=== PATIENT | female | born 1980 | race Caucasian/White ===

== ENCOUNTER 2020-01-18 08:51 | Emergency (ER) | payer BC, OTHER ==
[2020-01-18] MEDS ORDERED: diphenhydrAMINE 50 MG Cap PO ONE (08:57)
[2020-01-18] MEDS ORDERED: Dexamethasone 10 MG/ML SDV IM ONE (09:05)
--- NOTE | 2020-01-18 09:15 | EDM.PDOC ---
ED [facility] GENERAL MEDICAL PROBLEM - General Chief Complaint: Allergic Reaction Time Seen by Provider: 01/18/20 09:00 Source of Information: Reports: Patient History Limitations: Reports: No Limitations - Related Data Allergies Allergy/AdvReac Type Severity Reaction Status Date / Time No Known Allergies Allergy Verified 01/18/20 08:57 Home Meds: Home Meds methylPREDNISolone [Medrol Dose Pack] 4 mg PO DAILY 6 Days #21 dospk 01/18/20 [Rx] Past Medical History - Infectious Disease History Infectious Disease History: Reports: None - Past Surgical History GI Surgical History: Reports: Appendectomy Social & Family History - Family History Family Medical History: Noncontributory - Tobacco Use Smoking Status *Q: Never Smoker - Caffeine Use Caffeine Use: Reports: None - Recreational Drug Use Recreational Drug Use: No ED ROS ALLERGIC REACTION - Review of Systems Review Of Systems: Comprehensive ROS is negative, except as noted in HPI. HEENT: Reports: Other (scratchy throat) Skin: Reports: Other (Generalized itching) ED EXAM GENERAL NO PERIP PULSE - Physical Exam Exam: See Below Text/Narrative:: History of present illness: [] Review of systems: As per history of present illness and below otherwise all systems reviewed and negative. Past medical history: As per history of present illness and as reviewed below otherwise noncontributory. Surgical history: As per history of present illness and as reviewed below otherwise noncontributory. Social history: No reported history of drug or alcohol abuse. Family history: As per history of present illness and as reviewed below otherwise noncontributory. Physical exam: HEENT: Atraumatic, normocephalic, pupils reactive, negative for conjunctival pallor or scleral icterus, mucous membranes moist, throat clear, neck supple, nontender, trachea midline. Lungs: Clear to auscultation, breath sounds equal bilaterally, chest nontender. Heart: S1S2, regular, negative for clicks, rubs, or JVD. Abdomen: Soft, nondistended, nontender. Negative for masses or hepatosplenomegaly. Negative for costovertebral tenderness. Pelvis: Stable nontender. Genitourinary: Deferred. Rectal: Deferred. Extremities: Atraumatic, negative for cords or calf pain. Neurovascular unremarkable. Neuro: Awake, alert, oriented. Cranial nerves II through XII unremarkable. Cerebellum unremarkable. Motor and sensory unremarkable throughout. Exam nonfocal. Diagnostics: [] Therapeutics: [] Impression: [] Allergic reaction Plan: Observe briefly and then Medrol Dosepak and Benadryl as an outpatient [] Definitive disposition and diagnosis as appropriate pending reevaluation and review of above. Course - Vital Signs Last Recorded V/S: Last Vital Signs Temp 96.4 F L 01/18/20 08:58 Pulse 67 01/18/20 08:58 Resp 18 01/18/20 08:58 BP 121/75 01/18/20 08:58 Pulse Ox 97 01/18/20 08:58 - Orders/Labs/Meds Orders: Active Orders 24 hr Category Date Time Status dexAMETHasone [Dexamethasone] Med 01/18/20 09:05 Once 4 mg IM ONETIME ONE Meds: Medications Discontinued Medications Generic Name Dose Route Start Last Admin Trade Name Freq PRN Reason Stop Dose Admin Diphenhydramine HCl 50 mg 01/18/20 08:57 01/18/20 09:05 Benadryl PO 01/18/20 08:58 50 mg ONETIME ONE Administration Departure - Departure Time of Disposition: 09:16 Disposition: Home, Self-Care 01 Condition: Good Clinical Impression: Allergen injection reaction - Discharge Information Referrals: PCP,None [Primary Care Provider] - ([facility] - Internal Medicine [address] [place] [address] ) Forms: ED Department Discharge Additional Instructions: The following information is given to patients seen in the emergency department who are being discharged to home. This information is to outline your options for follow-up care. We provide all patients seen in our emergency department with a follow-up referral. The need for follow-up, as well as the timing and circumstances, are variable depending upon the specifics of your emergency department visit. If you don't have a primary care physician on staff, we will provide you with a referral. We always advise you to contact your personal physician following an emergency department visit to inform them of the circumstance of the visit and for follow-up with them and/or the need for any referrals to a consulting specialist. The emergency department will also refer you to a specialist when appropriate. This referral assures that you have the opportunity for follow-up care with a specialist. All of these measure are taken in an effort to provide you with optimal care, which includes your follow-up. Under all circumstances we always encourage you to contact your private physician who remains a resource for coordinating your care. When calling for follow-up care, please make the office aware that this follow-up is from your recent emergency room visit. If for any reason you are refused follow-up, please contact the [facility] Emergency Department at and asked to speak to the emergency department charge nurse. He should take Benadryl as well for 3 days probably at least 25 mg 3 times a day. If you feel weak lightheaded dizzy or have trouble breathing you need to return immediately by 911. Sepsis Event Note (ED) - Evaluation Sepsis Screening Result: No Definite Risk - Focused Exam Vital Signs: Vital Signs Temp Pulse Resp BP Pulse Ox 01/18/20 08:58 96.4 F L 67 18 121/75 97 - My Orders Last 24 Hours: My Active Orders 01/18/20 09:05 dexAMETHasone [Dexamethasone] 4 mg IM ONETIME ONE - Assessment/Plan Last 24 Hours: My Active Orders 01/18/20 09:05 dexAMETHasone [Dexamethasone] 4 mg IM ONETIME ONE
== END 2020-01-18 09:47 | disposition home or self-care (01) ==
LOC: MW.ED 08:51
DX: T78.40XA Allergy, unspecified, initial encounter (principal)
CPT/HCPCS: 96372; 99283; A9270; J1100; 99282

== ENCOUNTER 2020-01-20 19:15 | Emergency (ER) | payer BC ==
--- NOTE | 2020-01-20 19:53 | EDM.PDOC ---
ED [facility] GENERAL MEDICAL PROBLEM - General Chief Complaint: Abdominal Pain Stated Complaint: ABDOMINAL PAIN Time Seen by Provider: 01/20/20 19:27 Source of Information: Reports: Patient History Limitations: Reports: No Limitations - History of Present Illness INITIAL COMMENTS - FREE TEXT/NARRATIVE: 39-year-old female presents with lower abdominal pain. She is status post saline infusion sonohysterography on 01/17/[address] Dale given her history of irregular cycles. They found endometrial polyp with flow measuring 6 x 8 x 5 mm in size. She is scheduled for a biopsy on February 09. She has had cramping since the procedure but today the discomfort worsen, with intermittent sharp pain lasting minutes, rating at 9/10. She denies fever, chills, dysuria, nausea, vomiting, vaginal discharge. She had trace spotting today. ROS: A 10-point review of systems, other than pertinent positives and negatives as stated per HPI, is otherwise negative PHYSICAL EXAM General: AOx4, GCS = 15, moderate distress HEENT: dry mucous membrane Neck: supple, no meningismus, no Kernig or Brudzinski Cardiac: S1S2 RRR Respiratory: CTAB, no crackles or rales, no wheezing Abdomen: Soft, ttp lower abdomen diffusely, RLQ>suprapubic>LLQ ttp, mild RUQ ttp, no rebound or guarding, nondistended, no pulsatile mass. Back: nontender Musculoskeletal: NVI distally, no deformity Neuro: No focal deficits. MEDICAL DECISION MAKING: I reviewed the patients past medical records, lab and radiographic findings. I discussed the case with family members. My differential diagnosis included: Postop complication, appendicitis, dysmenorrhea Patient is allergic to contrast, head CT was performed without contrast, CT abdomen pelvis did not reveal any underlying surgical abnormality. She was much improved after Bentyl and Toradol, her pain improved from 9 to 2. Repeat abdominal exam was unremarkable, she felt comfortable being discharged and follow-up with OB on Thursday. 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 Musculoskeletal History: Reports: None Neurological History: Reports: None Psychiatric History: Reports: None Endocrine/Metabolic History: Reports: None Hematologic History: Reports: None Immunologic History: Reports: None Oncologic (Cancer) History: Reports: None Dermatologic History: Reports: None - Infectious Disease History Infectious Disease History: Reports: None - Past Surgical History Head Surgeries/Procedures: Reports: None GI Surgical History: Reports: Appendectomy Social & Family History - Family History Family Medical History: Noncontributory - Tobacco Use Smoking Status *Q: Never Smoker - Caffeine Use Caffeine Use: Reports: None - Recreational Drug Use Recreational Drug Use: No ED ROS GENERAL - Review of Systems Review Of Systems: Comprehensive ROS is negative, except as noted in HPI. ED EXAM, GI/ABD - Physical Exam Exam: See Below (see dictation) Course - Vital Signs Last Recorded V/S: Last Vital Signs Temp 97.2 F 01/20/20 19:45 Pulse 80 01/20/20 19:45 Resp 18 01/20/20 19:45 BP 121/76 01/20/20 19:45 Pulse Ox 98 01/20/20 19:45 - Orders/Labs/Meds Orders: Active Orders 24 hr Category Date Time Status Sodium Chloride 0.9% [Saline Flush] Med 01/20/20 20:04 Active 10 ml FLUSH ASDIRECTED PRN Saline Lock Insert [OM.PC] Stat Oth 01/20/20 20:04 Ordered Medication Orders Sodium Chloride (Saline Flush) 10 ml FLUSH ASDIRECTED PRN PRN Reason: Keep Vein Open Last Admin: 01/20/20 21:04 Dose: 10 ml Documented by: PABLO Labs: Laboratory Tests 01/20/20 01/20/20 01/20/20 Range/Units 20:57 20:57 20:57 WBC 9.91 (4.0-11.0) K/uL RBC 4.46 (4.30-5.90) M/uL Hgb 11.9 L (12.0-16.0) g/dL Hct 37.6 (36.0-46.0) % MCV 84.3 (80.0-98.0) fL MCH 26.7 L (27.0-32.0) pg MCHC 31.6 (31.0-37.0) g/dL RDW Std Deviation 47.1 (28.0-62.0) fl RDW Coeff of Karly 15 (11.0-15.0) % Plt Count 210 (150-400) K/uL MPV 11.90 (7.40-12.00) fL Neut % (Auto) 71.1 (48.0-80.0) % Lymph % (Auto) 21.1 (16.0-40.0) % Weakley % (Auto) 5.5 (0.0-15.0) % Eos % (Auto) 1.9 (0.0-7.0) % Baso % (Auto) 0.4 (0.0-1.5) % Neut # (Auto) 7.0 H (1.4-5.7) K/uL Lymph # (Auto) 2.1 (0.6-2.4) K/uL Weakley # (Auto) 0.6 (0.0-0.8) K/uL Eos # (Auto) 0.2 (0.0-0.7) K/uL Baso # (Auto) 0.0 (0.0-0.1) K/uL Nucleated RBC % 0.0 /100WBC Nucleated RBCs # 0 K/uL INR 1.02 APTT 23.1 (18.6-31.3) SEC Lactate 0.8 (0.20-2.00) mmol/L Sodium (136-145) mmol/L Potassium (3.5-5.1) mmol/L Chloride (98-107) mmol/L Carbon Dioxide (21.0-32.0) mmol/L BUN (7.0-18.0) mg/dL Creatinine (0.6-1.0) mg/dL Est Cr Clr Drug Dosing mL/min Estimated GFR (MDRD) ml/min Glucose (74-106) mg/dL Calcium (8.5-10.1) mg/dL Phosphorus (2.6-4.7) mg/dL Magnesium (1.8-2.4) mg/dL Total Bilirubin (0.2-1.0) mg/dL AST (15-37) IU/L ALT (14-63) IU/L Alkaline Phosphatase (46-116) U/L Total Protein (6.4-8.2) g/dL Albumin (3.4-5.0) g/dL Globulin (2.6-4.0) g/dL Albumin/Globulin Ratio (0.9-1.6) Lipase (73-393) U/L Urine Color Urine Appearance Urine pH (5.0-8.0) Ur Specific Flint (1.001-1.035) Urine Protein (NEGATIVE) mg/dL Urine Glucose (UA) (NEGATIVE) mg/dL Urine Ketones (NEGATIVE) mg/dL Urine Occult Blood (NEGATIVE) Urine Nitrite (NEGATIVE) Urine Bilirubin (NEGATIVE) Urine Urobilinogen (<2.0) EU/dL Ur Leukocyte Esterase (NEGATIVE) Urine RBC (0-2/HPF) Urine WBC (0-5/HPF) Ur Epithelial Cells (NONE-FEW) Urine Bacteria (NEGATIVE) 01/20/20 01/20/20 Range/Units 20:57 21:50 WBC (4.0-11.0) K/uL RBC (4.30-5.90) M/uL Hgb (12.0-16.0) g/dL Hct (36.0-46.0) % MCV (80.0-98.0) fL MCH (27.0-32.0) pg MCHC (31.0-37.0) g/dL RDW Std Deviation (28.0-62.0) fl RDW Coeff of Karly (11.0-15.0) % Plt Count (150-400) K/uL MPV (7.40-12.00) fL Neut % (Auto) (48.0-80.0) % Lymph % (Auto) (16.0-40.0) % Weakley % (Auto) (0.0-15.0) % Eos % (Auto) (0.0-7.0) % Baso % (Auto) (0.0-1.5) % Neut # (Auto) (1.4-5.7) K/uL Lymph # (Auto) (0.6-2.4) K/uL Weakley # (Auto) (0.0-0.8) K/uL Eos # (Auto) (0.0-0.7) K/uL Baso # (Auto) (0.0-0.1) K/uL Nucleated RBC % /100WBC Nucleated RBCs # K/uL INR APTT (18.6-31.3) SEC Lactate (0.20-2.00) mmol/L Sodium 139 (136-145) mmol/L Potassium 3.4 L (3.5-5.1) mmol/L Chloride 103 (98-107) mmol/L Carbon Dioxide 26.2 (21.0-32.0) mmol/L BUN 18 (7.0-18.0) mg/dL Creatinine 0.9 (0.6-1.0) mg/dL Est Cr Clr Drug Dosing 101.92 mL/min Estimated GFR (MDRD) > 60.0 ml/min Glucose 90 (74-106) mg/dL Calcium 8.6 (8.5-10.1) mg/dL Phosphorus 4.4 (2.6-4.7) mg/dL Magnesium 1.9 (1.8-2.4) mg/dL Total Bilirubin 0.2 (0.2-1.0) mg/dL AST 12 L (15-37) IU/L ALT 21 (14-63) IU/L Alkaline Phosphatase 71 (46-116) U/L Total Protein 7.3 (6.4-8.2) g/dL Albumin 4.2 (3.4-5.0) g/dL Globulin 3.1 (2.6-4.0) g/dL Albumin/Globulin Ratio 1.4 (0.9-1.6) Lipase 85 (73-393) U/L Urine Color YELLOW Urine Appearance CLEAR Urine pH 5.0 (5.0-8.0) Ur Specific Flint 1.020 (1.001-1.035) Urine Protein NEGATIVE (NEGATIVE) mg/dL Urine Glucose (UA) NEGATIVE (NEGATIVE) mg/dL Urine Ketones NEGATIVE (NEGATIVE) mg/dL Urine Occult Blood SMALL H (NEGATIVE) Urine Nitrite NEGATIVE (NEGATIVE) Urine Bilirubin NEGATIVE (NEGATIVE) Urine Urobilinogen 0.2 (<2.0) EU/dL Ur Leukocyte Esterase NEGATIVE (NEGATIVE) Urine RBC 0-2 (0-2/HPF) Urine WBC 0-1 (0-5/HPF) Ur Epithelial Cells RARE (NONE-FEW) Urine Bacteria FEW (NEGATIVE) Meds: Medications Generic Name Dose Route Start Last Admin Trade Name Frebrandy PRN Reason Stop Dose Admin Sodium Chloride 10 ml 01/20/20 20:04 01/20/20 21:04 Saline Flush FLUSH 10 ml ASDIRECTED PRN Administration Keep Vein Open Discontinued Medications Generic Name Dose Route Start Last Admin Trade Name Freq PRN Reason Stop Dose Admin Dicyclomine HCl 20 mg 01/20/20 20:04 01/20/20 21:04 Bentyl PO 01/20/20 20:05 20 mg ONETIME ONE Administration Lactated Ringer's 1,000 mls @ 999 mls/hr 01/20/20 20:04 01/20/20 20:57 Ringers, Lactated IV 01/20/20 21:04 999 mls/hr .BOLUS ONE Administration Ketorolac Tromethamine 15 mg 01/20/20 20:04 01/20/20 21:01 Toradol IVPUSH 01/20/20 20:05 15 mg ONETIME ONE Administration Ketorolac Tromethamine 15 mg 01/20/20 23:15 01/20/20 23:53 Toradol IVPUSH 01/20/20 23:16 15 mg ONETIME ONE Administration Ketorolac Tromethamine Confirm 01/20/20 23:48 01/20/20 23:54 Toradol Administered 01/20/20 23:49 Not Given Dose 15 mg .ROUTE .STK-MED ONE Morphine Sulfate 4 mg 01/20/20 20:04 01/20/20 23:52 Morphine IVPUSH 01/20/20 20:05 Not Given ONETIME ONE Ondansetron HCl 4 mg 01/20/20 20:04 01/20/20 21:00 Zofran IVPUSH 01/20/20 20:05 4 mg ONETIME ONE Administration - Re-Assessments/Exams Free Text/Narrative Re-Assessment/Exam: 01/20/20 20:10 Ordered IV fluids, Bentyl 20mg, Toradol, morphine 4 mg IV. Departure - Departure Time of Disposition: 23:59 Disposition: Home, Self-Care 01 Condition: Good Clinical Impression: Abdominal pain - Discharge Information *PRESCRIPTION DRUG MONITORING PROGRAM REVIEWED*: Not Applicable *COPY OF PRESCRIPTION DRUG MONITORING REPORT IN PATIENT PRACHI: Not Applicable Prescriptions: Dicyclomine [Bentyl] 20 mg PO BID #20 tablet Naproxen [Naprosyn] 500 mg PO Q12HR #10 tab Instructions: Abdominal Pain, Adult, [id number] Referrals: Chito Cevallos MD [Physician] - 2 Days Forms: ED Department Discharge Additional Instructions: The following information is given to patients seen in the emergency department who are being discharged to home. This information is to outline your options for follow-up care. We provide all patients seen in our emergency department with a follow-up referral. The need for follow-up, as well as the timing and circumstances, are variable depending upon the specifics of your emergency department visit. If you don't have a primary care physician on staff, we will provide you with a referral. We always advise you to contact your personal physician following an emergency department visit to inform them of the circumstance of the visit and for follow-up with them and/or the need for any referrals to a consulting specialist. The emergency department will also refer you to a specialist when appropriate. This referral assures that you have the opportunity for follow-up care with a specialist. All of these measure are taken in an effort to provide you with optimal care, which includes your follow-up. Under all circumstances we always encourage you to contact your private physician who remains a resource for coordinating your care. When calling for follow-up care, please make the office aware that this follow-up is from your recent emergency room visit. If for any reason you are refused follow-up, please contact the [facility] Emergency Department at and asked to speak to the emergency department charge nurse. Sepsis Event Note (ED) - Evaluation Sepsis Screening Result: No Definite Risk - Focused Exam Vital Signs: Vital Signs Temp Pulse Resp BP Pulse Ox 01/20/20 19:45 97.2 F 80 18 121/76 98 - My Orders Last 24 Hours: My Active Orders 01/20/20 20:04 Sodium Chloride 0.9% [Saline Flush] 10 ml FLUSH ASDIRECTED PRN Saline Lock Insert [OM.PC] Stat - Assessment/Plan Last 24 Hours: My Active Orders 01/20/20 20:04 Sodium Chloride 0.9% [Saline Flush] 10 ml FLUSH ASDIRECTED PRN Saline Lock Insert [OM.PC] Stat
[2020-01-20] MEDS ORDERED: Lactated Ringers 1,000 ML IV ONE (20:04)
[2020-01-20] MEDS ORDERED: Dicyclomine 10 MG Cap PO ONE (20:04)
[2020-01-20] MEDS ORDERED: Morphine 10 MG/ML Syringe IVPUSH ONE (20:04)
[2020-01-20] MEDS ORDERED: Ketorolac 15 MG/ML SDV IVPUSH ONE (20:04)
[2020-01-20] MEDS ORDERED: Ondansetron 4 MG/2 ML SDV IVPUSH ONE (20:04)
[2020-01-20] MEDS ORDERED: Sodium Chloride 0.9% 10 ML Syringe FLUSH PRN (20:04)
--- NOTE | 2020-01-20 21:13 | CT ---
CT abdomen and pelvis Technique: Multiple axial sections were obtained from above the dome of the diaphragm inferiorly through the pubic symphysis. Intravenous and oral contrast not utilized. Comparison: No prior abdominal imaging is available. Findings: Visualized lung bases shows a small air-filled cyst within the right base which appears to be chronic. Small subpleural nodule is noted within the lateral left costophrenic angle measuring about 3 mm which is felt to be incidental. Liver shows a minimal low density lesion within the inferior right lobe measuring about 6 mm in size. This is too small to accurately get a Hounsfield unit measurement but most likely represents a small cyst as no other liver lesions are seen. Spleen appears within normal limits. Adrenal glands show no nodule. Kidneys show no abnormal calcifications. No ureteral dilatation or ureteral stone is seen. Pancreas shows no discrete abnormality. Aorta shows no aneurysm. No retroperitoneal adenopathy or mesenteric abnormalities are seen. Appendix is not seen with certainty. No pelvic mass or adenopathy is noted. No free fluid or inflammatory change is seen. Slight increased stool is noted within the right and transverse colon. Bone window settings were reviewed which shows no acute osseous finding. Impression: 1. Slight increased stool within the right and transverse colon. 2. Nothing acute is otherwise appreciated on noncontrast CT study of the abdomen and pelvis. Diagnostic code #2 Study was dictated in MDT
[2020-01-20 21:41] LABS: BLOOD UREA NITROGEN,BUN 18 mg/dL (7.0-18.0); CARBON DIOXIDE,CO2 26.2 mmol/L (21.0-32.0); CHLORIDE,CL 103 mmol/L (98-107); GLUCOSE RANDOM 90 mg/dL (74-106); LIPASE 85 U/L (73-393); POTASSIUM,K 3.4 mmol/L (3.5-5.1); SODIUM,NA 139 mmol/L (136-145)
[2020-01-20] MEDS ORDERED: Ketorolac 30 MG/ML SDV IVPUSH ONE (23:15)
[2020-01-20] MEDS ORDERED: Ketorolac 15 MG/ML SDV ONE (23:48)
== END 2020-01-21 00:23 | disposition home or self-care (01) ==
LOC: MW.ED 19:15
DX: R10.31 Right lower quadrant pain (principal); R10.32 Left lower quadrant pain; R10.11 Right upper quadrant pain; Z88.6 Allergy status to analgesic agent; Z90.49 Acquired absence of other specified parts of digestive tract; Z79.899 Other long term (current) drug therapy
CPT/HCPCS: 36415; 74176; 80053; 81001; 83605; 83690; 83735; 84100; 85025; 85610; 85730; 96374; 96375; 96376; 99284; A9270; J1885; J2405; J7120; 99283

== ENCOUNTER 2020-02-10 11:25 | Day surgery (SDC) | payer BC, OTHER ==
[~2020-02-10 11:25] MED LIST: Lactated Ringers 1,000 ML IV SCH
--- NOTE | 2020-02-10 12:27 | PCM.PREANE ---
Preanesthetic Assessment - Anesthesia/Transfusion/Family Hx Anesthesia History: Prior Anesthesia Without Reaction Family History of Anesthesia Reaction: No Transfusion History: No Prior Transfusion(s) - Review of Systems General: No Symptoms Pulmonary: No Symptoms Cardiovascular: No Symptoms Gastrointestinal: No Symptoms Neurological: No Symptoms Other: Reports: None - Physical Assessment NPO Status Date: 02/09/20 Height: 6 ft 1 in Weight: 92.533 kg ASA Class: 1 Mental Status: Alert & Oriented x3 Airway Class: Mallampati = 2 ROM/Head Extension: Full Lungs: Clear to Auscultation, Normal Respiratory Effort Cardiovascular: Regular Rate, Regular Rhythm - Lab Values: Laboratory Last Values WBC 5.12 K/uL (4.0-11.0) 02/09/20 08:43 RBC 4.60 M/uL (4.30-5.90) 02/09/20 08:43 Hgb 12.2 g/dL (12.0-16.0) 02/09/20 08:43 Hct 39.3 % (36.0-46.0) 02/09/20 08:43 MCV 85.4 fL (80.0-98.0) 02/09/20 08:43 MCH 26.5 pg (27.0-32.0) L 02/09/20 08:43 MCHC 31.0 g/dL (31.0-37.0) 02/09/20 08:43 RDW Std Deviation 47.9 fl (28.0-62.0) 02/09/20 08:43 RDW Coeff of Karly 15 % (11.0-15.0) 02/09/20 08:43 Plt Count 188 K/uL (150-400) 02/09/20 08:43 MPV 11.50 fL (7.40-12.00) 02/09/20 08:43 Nucleated RBC % 0.0 /100WBC 02/09/20 08:43 Nucleated RBCs # 0 K/uL 02/09/20 08:43 Urine HCG, Qual NEGATIVE (NEGATIVE) 02/09/20 08:35 - Allergies Allergies/Adverse Reactions: Allergies Allergy/AdvReac Type Severity Reaction Status Date / Time iodine Allergy Hives Verified 02/07/20 09:17 - Blood Blood Available: No - Anesthesia Plan Pre-Op Medication Ordered: None - Acknowledgements Anesthesia Type Planned: General Anesthesia Pt an Appropriate Candidate for the Planned Anesthesia: Yes Alternatives and Risks of Anesthesia Discussed w Pt/Guardian: Yes Pt/Guardian Understands and Agrees with Anesthesia Plan: Yes Additional Comments: PMH: none PLAN: ga/lma PreAnesthesia Questionnaire HEENT History: Reports: None Cardiovascular History: Reports: None Respiratory History: Reports: None Gastrointestinal History: Reports: None Genitourinary History: Reports: None 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 Musculoskeletal History: Reports: None Neurological History: Reports: None Other Neuro History: seizure activity 15 years ago, "possibly caused by depression" none since Psychiatric History: Reports: None Endocrine/Metabolic History: Reports: None Hematologic History: Reports: None Immunologic History: Reports: None Oncologic (Cancer) History: Reports: None Dermatologic History: Reports: None - Infectious Disease History Infectious Disease History: Reports: None - Past Surgical History Head Surgeries/Procedures: Reports: None HEENT Surgical History: Reports: None Cardiovascular Surgical History: Reports: None Respiratory Surgical History: Reports: None GI Surgical History: Reports: Appendectomy Female Surgical History: Reports: Tubal Ligation Endocrine Surgical History: Reports: None Neurological Surgical History: Reports: None Musculoskeletal Surgical History: Reports: Arthroscopic Knee Oncologic Surgical History: Reports: None Dermatological Surgical History: Reports: None - SUBSTANCE USE Smoking Status *Q: Light Tobacco Smoker Tobacco Use Within Last Twelve Months: Cigarettes - HOME MEDS Home Medications: Home Meds . [No Known Home Meds] 02/07/20 [History] - CURRENT (IN HOUSE) MEDS Current Meds: Current Medications Lactated Ringer's (Ringers, Lactated) 1,000 mls @ 125 mls/hr IV ASDIRECTED [facility]
[2020-02-10] MEDS ORDERED: Lidocaine 2% 5 ML SDV ONE ×2 (12:47→14:03)
[2020-02-10] MEDS ORDERED: Ondansetron 4 MG/2 ML SDV ONE ×2 (12:47→14:03)
[2020-02-10] MEDS ORDERED: Propofol 200 MG/20 ML SDV ONE ×2 (12:47→13:34)
[2020-02-10] MEDS ORDERED: Midazolam 1 MG/ML 2 ML SDV ONE ×2 (12:47→13:34)
[2020-02-10] MEDS ORDERED: fentaNYL 250 MCG/5 ML SDV ONE (12:47)
[2020-02-10] MEDS ORDERED: Sodium Chloride 0.9% 2.5 ML Syringe FLUSH PRN (13:25)
[2020-02-10] MEDS ORDERED: Sodium Chloride 0.9% 10 ML SDV IV PRN (13:25)
[2020-02-10] MEDS ORDERED: Sodium Chloride 0.9% 10 ML Syringe FLUSH PRN (13:25)
[2020-02-10] MEDS ORDERED: fentaNYL 100 MCG/2 ML SDV ONE (13:34)
[2020-02-10] MEDS ORDERED: Ketorolac 30 MG/ML SDV ONE ×2 (13:36→14:03)
[2020-02-10] MEDS ORDERED: Glycopyrrolate 0.2 MG/ML SDV ONE ×2 (13:36→14:03)
[2020-02-10] MEDS ORDERED: fentaNYL 100 MCG/2 ML SDV IVPUSH PRN (14:12)
[2020-02-10] MEDS ORDERED: Acetaminophen 1,000 MG in Premix Bag 1 BAG IV PRN (14:12)
[2020-02-10] MEDS ORDERED: Morphine 4 MG/ML Syringe IVPUSH PRN (14:31)
[2020-02-10] MEDS ORDERED: Ketorolac 30 MG/ML SDV IVPUSH ONE (14:31)
[2020-02-10] MEDS ORDERED: Acetaminophen/oxyCODONE 325-5 MG Tab PO PRN ×2 (14:31)
[2020-02-10] MEDS ORDERED: Ketorolac 30 MG/ML SDV IVPUSH PRN (14:31)
[2020-02-10] MEDS ORDERED: Promethazine 25 MG/ML SDV IM PRN (14:31)
[2020-02-10] MEDS ORDERED: Ondansetron 4 MG/2 ML SDV IVPUSH PRN (14:31)
--- NOTE | 2020-02-10 14:34 | PCM.POSTAN ---
POST ANESTHESIA ASSESSMENT - MENTAL STATUS Mental Status: Alert, Oriented - VITAL SIGNS Vital Signs: Last Vital Signs Temp 97.9 F 02/10/20 14:23 Pulse 74 02/10/20 14:28 Resp 13 02/10/20 14:28 BP 121/77 02/10/20 14:28 Pulse Ox 95 02/10/20 14:28 - RESPIRATORY Respiratory Status: Respiratory Rate WNL, Airway Patent, O2 Saturation Stable - CARDIOVASCULAR CV Status: Pulse Rate WNL, Blood Pressure Stable - GASTROINTESTINAL GI Status: No Symptoms - POST OP HYDRATION Hydration Status: Adequate & Stable
--- NOTE | 2020-02-10 14:36 | PCM.OPNOTE ---
- General Post-Op/Procedure Note Date of Surgery/Procedure: 02/10/20 Operative Procedure(s): Hysteroscopic Myomectomy. Endometrial curetage Findings: EUA showed normal sized anteverted uterus Pre Op Diagnosis: Abnormal Uterine Bleeding. Endometrial lesion Post-Op Diagnosis: same Anesthesia Technique: General ET Tube Primary Surgeon: Chito Cevallos Anesthesia Provider: Sarwat Mendez Pathology: Endometrial lesion and endometrial currettings Fluid Replacement, Intraop: 700 EBL in mLs: 0 Complications: None Condition: Good
--- NOTE | 2020-02-10 15:02 | PCM48HPAN ---
Post Anesthesia Note - EVALUATION WITHIN 48HRS OF ANESTHETIC Vital Signs in Normal Range: Yes Patient Participated in Evaluation: Yes Respiratory Function Stable: Yes Airway Patent: Yes Cardiovascular Function Stable: Yes Hydration Status Stable: Yes Pain Control Satisfactory: Yes Nausea and Vomiting Control Satisfactory: Yes Mental Status Recovered: Yes Vital Signs: Last Vital Signs Temp 97.9 F 02/10/20 14:23 Pulse 72 02/10/20 14:33 Resp 10 L 02/10/20 14:33 BP 123/78 02/10/20 14:33 Pulse Ox 97 02/10/20 14:33
--- NOTE | 2020-02-10 21:13 | OR ---
SURGEON: DB CEVALLOS DATE OF PROCEDURE: 02/10/2020 PRIMARY SURGEON: Dr. Db Cevallos. PREOPERATIVE DIAGNOSIS: A 39-year-old with abnormal uterine bleeding and endometrial lesion. POSTOPERATIVE DIAGNOSIS: A 39-year-old with abnormal uterine bleeding and endometrial lesion. PROCEDURE: Hysteroscopic resection of endometrial lesion Dilatation and curettage. IVF: 800 NS ANAESTHESIA: General COMPLICATIONS: None FINDINGS: A normal-sized anteverted uterus. Hysteroscopy showed about a 1 cm mass in the anterior fundus of the uterus and also endometrial polyps in the lower uterine segment too. BRIEF HISTORY: A 39-year-old who came in complaining of abnormal uterine bleeding. She had a workup done that showed an endometrial lesion. She also had a second ultrasound that showed the lesion. The patient was given the option for surgical removal, which she accepted. She was explained the risks, benefits, and alternatives, and she decided to proceed. DESCRIPTION OF PROCEDURE: The patient was taken to the operating room where general anesthesia was performed without difficulty. She was prepared and draped in the normal dorsal lithotomy position with Alon stirrups. She was draped in the usual fashion. The speculum was placed to expose the cervix. The cervix was dilated to accommodate the MyoSure hysteroscope, which was placed, and the above-noted lesion was noted. The MyoSure was then inserted and the lesion was then removed with MyoSure without any difficulty, after which a gentle sharp curettage was done. The instruments were removed without any difficulty. The patient tolerated the procedure well. All instrument and pad counts were correct x2. The patient was sent home in stable condition. KENDRICK ANDREA /[id number] MTDChepe
== END 2020-02-10 15:20 | disposition home or self-care (01) ==
LOC: MW.SDS 11:25
PROVIDERS: ATTEND Obstetrics & Gynecology
DX: N84.0 Polyp of corpus uteri (principal); Z91.041 Radiographic dye allergy status; Z87.891 Personal history of nicotine dependence; Z98.51 Tubal ligation status
CPT/HCPCS: 36415; 58563; 81025; 85027; J2001; J2250; J2704; J3010; J3490; J7120; J1885; J2405